=== PATIENT | female | born 1960 | race African-American/Black ===

== ENCOUNTER 2016-05-16 22:27 | Emergency (ER) | payer BC ==
[2016-05-16] MEDS ORDERED: Adacel (T-DAP) 0.5 ML VIAL ONE (23:12)
== END 2016-05-16 23:37 | disposition home or self-care (01) ==
LOC: BURERS 22:27
DX: S51.811A Laceration without foreign body of right forearm, initial encounter (principal); I10 Essential (primary) hypertension; F32.9 Major depressive disorder, single episode, unspecified; Z79.891 Long term (current) use of opiate analgesic; Z79.899 Other long term (current) drug therapy; W26.0XXA Contact with knife, initial encounter
CPT/HCPCS: 12013; 90471; 90715

== ENCOUNTER 2017-05-29 18:21 | Emergency (ER) | payer BC ==
[2017-05-29] MEDS ORDERED: HYDROcodone/Acetaminophen 5/325 mg Tablet ONE (18:42)
[2017-05-29] MEDS ORDERED: Ondansetron ODT 4 MG TAB ONE (18:43)
[2017-05-29] MEDS ORDERED: Ciprofloxacin 500 MG TAB ONE (18:43)
[2017-05-29 19:02] LABS: Bilirubin Negative (Negative); Blood, Urine Trace (Negative); Clarity Clear (Clear); Glucose, Urine (Dipstick) Negative (Negative); Leukocyte Negative (Negative); Nitrite Negative (Negative); Protein, Urine (Dipstick) > or equal to 300 mg/dL (Neg-Trace); Urobilinogen 0.2 mg/dL (0.2-1.0)
[2017-05-29 19:11] LABS: Bacteria/HPF Rare-Few HPF (None Seen); Crystals/HPF None Seen HPF (Negative); Hyaline Casts/LPF NONE SEEN LPF (0-3 Hyaline); Other Casts/LPF None Seen LPF (0-3 Hyaline); Oval Fat Bodies/HPF None Seen HPF (None Seen); RBC/HPF 0-3 HPF (0-3); Renal Epithelial None Seen HPF (0-3); Sperm/HPF None Seen HPF (None Seen); Squamous Epithelial 0-3 HPF (0-3); Transitional Epithelial NONE SEEN HPF (0-3); Trichomonas/HPF None Seen HPF (None Seen); WBC/HPF 0-3 HPF (0-3); Yeast-All Forms None Seen HPF (None Seen)
== END 2017-05-29 20:10 | disposition home or self-care (01) ==
LOC: BURERS 18:21
DX: N39.0 Urinary tract infection, site not specified (principal); I10 Essential (primary) hypertension; F32.9 Major depressive disorder, single episode, unspecified; Z79.899 Other long term (current) drug therapy
CPT/HCPCS: 81003; 81015; 87077; 87086; 87186; 99283; Q0162

== ENCOUNTER 2022-03-04 19:22 | Emergency (ER) | payer BC ==
[2022-03-04] MEDS ORDERED: Albuterol Sulfate 2.5 mg/0.5 ml Neb ONE (19:45)
[2022-03-04] MEDS ORDERED: Magnesium 2 GM/50 ML BAG (IN WATER) ONE (19:53)
[2022-03-04] MEDS ORDERED: methylPREDNISolone Sod Succ/PF 125 MG/2 ML VIAL ONE (19:53)
[2022-03-04 19:56] LABS: #Eosinphils 0.2 thou/uL (0.0-0.7); #Lymphocytes 1.5 thou/uL (1.20-3.40); #Monocytes 0.4 thou/uL (0.11-0.59); #Neutrophils 3.7 thou/uL (1.40-6.50); %Basophils 0.7 % (0.0-1.0); %Eosinophils 2.9 % (0.0-10.0); %Lymphocytes 25.7 % (21.0-51.0); %Monocytes 6.8 % (0.0-10.0); Hemoglobin 13.3 g/dL (12.0-16.0); Mean Corpuscular Hemoglobin 29.2 pg (27.0-31.0); Mean Corpuscular Volume 91.2 fl (78.0-98.0); Mean Platelet Volume 8.2 fL (7.4-10.4); Platelet Count 283 10x3/uL (130-400); RBC Distribution Width 13.2 % (11.5-14.5); Red Blood Cell (RBC) Count 4.56 mill/uL (4.20-5.40); White Blood Cell (WBC) Count 5.7 10x3/uL (4.8-10.8)
[2022-03-04 20:13] LABS: ALT (SGPT) 16 U/L (8-55); AST (SGOT) 20 U/L (5-34); Albumin 4.2 g/dL (3.4-4.8); Alkaline Phosphatase 89 U/L (40-110); Anion Gap 15 mmol/L (10-20); BUN (Urea Nitrogen) 17 mg/dL (9.8-20.1); Bilirubin, Total 0.5 mg/dL (0.2-1.2); Calc. Creatinine Clearance 0 mL/min (70-130); Calcium 9.7 mg/dL (7.8-10.44); Carbon Dioxide 24 mmol/L (23-31); Chloride 106 mmol/L (98-107); Estimated GFR 85; Globulin 3.3 g/dL (2.4-3.5); Glucose 109 mg/dL (80-115); Potassium 3.8 mmol/L (3.5-5.1); Protein, Total 7.5 g/dL (5.8-8.1); Sodium 141 mmol/L (136-145)
[2022-03-04 21:17] LABS: SARS-CoV-2 NAA Rapid Test Not Detected (NotDetected)
== END 2022-03-04 23:34 | disposition short-term general hospital (02) ==
LOC: BURERS 19:22
DX: J45.901 Unspecified asthma with (acute) exacerbation (principal); J11.1 Influenza due to unidentified influenza virus with other respiratory manifestations; I10 Essential (primary) hypertension; E66.9 Obesity, unspecified; Z20.822 Contact with and (suspected) exposure to COVID-19
CPT/HCPCS: 36415; 71045; 80053; 85025; 94640; 96374; 96375; J2930; J3475; J7611

== ENCOUNTER 2023-01-15 06:23 | Emergency (ER) | payer BC ==
[2023-01-15] MEDS ORDERED: methylPREDNISolone Sod Succ/PF 125 MG/2 ML VIAL ONE (06:55)
== END 2023-01-15 07:10 | disposition home or self-care (01) ==
LOC: BURERS 06:23
DX: M25.511 Pain in right shoulder (principal); I10 Essential (primary) hypertension
CPT/HCPCS: 96372; 99283; J2930